=== PATIENT | female | born 1990 | race Caucasian/White ===

== ENCOUNTER 2016-10-24 02:15 | Inpatient (IN) ==
[2016-10-24] MEDS ORDERED: ONDANSETRON 4 MG/2 ML VIAL IV PRN (02:49)
[2016-10-24] MEDS ORDERED: BUTORPHANOL 2 MG/ML VIAL IV PRN (02:49)
[2016-10-24] MEDS ORDERED: CITRIC ACID/SODIUM CITRATE 30 ML UDCUP PO ONE (02:56)
[2016-10-24] MEDS ORDERED: ePHEDrine 50 MG/ML AMP IV PRN (02:56)
[2016-10-24] MEDS ORDERED: FAMOTIDINE 20 MG/2 ML VIAL IV ONE (02:56)
[2016-10-24] MEDS ORDERED: fentaNYL 2 MCG/ROPIV 0.2% EPID 150 ML EPIDURAL SCH (02:57)
[2016-10-24] MEDS ORDERED: LACTATED RINGERS 1,000 ML IV SCH (03:00)
[2016-10-24] MEDS: CLINDAMYCIN INJ 900 MG in PREMIX 1 EACH IV SCH ×2 (03:15→12:04)
[2016-10-24 03:29] LABS: Basophils % 0.1 % (0.0-0.8); Eosinophils % 0.3 % (0.00-10.9); Hematocrit 40.9 VOL% (35.7-47.0); Hemoglobin 13.7 GM/DL (12.0-16.0); Immature Granulocytes % 0.6 %; Immature Granulocytes Absolute 0.05 #; Lymphocytes # 1.6 10*3/uL (1.4-4.0); Lymphocytes % 18.1 % (21.3-54.2); Mean Corpuscular HGB Conc 33.5 GM/DL (32-36); Mean Corpuscular Hemoglobin 31 PG (27-34); Mean Corpuscular Volume 92.5 FL (87-102); Mean Platelet Volume 10.8 FL (9.6-12.0); Monocytes # 0.6 10*3/uL (0.11-0.8); Monocytes % 6.1 % (1.7-12.7); Neutrophils # 6.7 10*3/uL (1.4-7.4); Neutrophils % 74.8 % (38.7-73.9); Platelet Count 128 10*3/uL (130-400); Red Blood Count 4.42 10*6/uL (3.8-5.5); Red Cell Distribution Width 13.7 % (9.3-17.3)
[2016-10-24] MEDS ORDERED: ePHEDrine 50 MG/ML AMP ONE (03:34)
[2016-10-24 03:39] LABS: PT Patient Result 10.1 SECS; Partial Thromboplastin Time 24.9 SECS (0-40)
[2016-10-24 03:59] LABS: Albumin 2.9 G/DL (3.4-5.0); Bilirubin,Total 0.7 MG/DL (0.2-1.0); Calcium 8.8 MG/DL (8.5-10.1); Osmolality,Calculated 276.4 MOS/KG (273-304); Potassium 3.8 MMOL/L (3.5-5.1); Total Protein 6.5 G/DL (6.4-8.3)
[2016-10-24] MEDS ORDERED: miSOPROStol 200 MCG TABLET ONE (06:57)
[2016-10-24] MEDS ORDERED: METHYLERGONOVINE 0.2 MG/1 ML AMP ONE (06:58)
[2016-10-24] MEDS: OXYTOCIN/LR 20 UNIT/1,000 ML BAG IV SCH ×2 (07:32→10:07)
--- NOTE | 2016-10-24 07:54 | Operative Note ---
Date of procedure: 10/24/16 Pre-op diagnosis: IUP at 39 weeks, active labor Post-op diagnosis: same Procedure: findings: male , apgars pending and weight pending at time of delivery The pt was admitted in active labor. She progressed to completely dilated . AROM with clear fluid and the pt delivered SAVD without complications. The placenta delivered spontaneously. There was a 2nd degree laceration which was repaired with 3-0 vicryl in the usual fashion. Hemastasis assured. Anesthesia: epidural Surgeon / Physician: Britt Altamirano Estimated blood loss: other Specimens: none sent Condition: stable Results - Labs CBC & BMP: 10/24/16 Unknown 10/24/16 Unknown Discharge Plan - Discharge Medications No Action Multivitamin () [ Vitamin] 1 tablet PO DAILY - Follow Up or Referral - Forms/Instructions
[2016-10-24] MEDS ORDERED: HYDROCORTISONE 2.5% RECTAL CREAM 30 GM TUBE TOP PRN (11:10)
[2016-10-24] MEDS ORDERED: OXYTOCIN/LR 20 UNIT/1,000 ML BAG IV ONE (11:10)
[2016-10-24] MEDS ORDERED: BISACODYL 10 MG SUPP RECTAL PRN (11:10)
[2016-10-24] MEDS ORDERED: WITCH HAZEL PADS 100/JAR TOP PRN (11:10)
[2016-10-24] MEDS ORDERED: LANOLIN 50% CREAM 0.3 OZ TUBE TOP PRN (11:10)
[2016-10-24] MEDS ORDERED: oxyCODONE/ACETAMINOPHEN 5-325 MG TABLET PO PRN ×2 (11:10)
[2016-10-24] MEDS ORDERED: MEASLES/MUMPS/RUBELLA VACCINE 0.5 ML VIAL SUBCUT ONE (11:10)
[2016-10-24] MEDS ORDERED: BENZOCAINE 20%/MENTHOL 0.5% SPRAY 56 GM CAN TOP PRN (11:10)
[2016-10-24] MEDS ORDERED: DIPH/TET/ACEL PERT BOOSTER VACCINE 0.5 ML VIAL IM ONE (11:10)
[2016-10-24] MEDS ORDERED: RHO(D) IMMUNE GLOBULIN 300 MCG SYRINGE IM ONE (11:10)
[2016-10-24] MEDS ORDERED: ACETAMINOPHEN 325 MG TABLET PO PRN (11:10)
[2016-10-24] MEDS: DOCUSATE SODIUM 100 MG CAPSULE PO SCH ×2 (12:04→19:30)
[2016-10-25] MEDS: IBUPROFEN 800 MG TABLET PO PRN ×3 (00:25→21:36)
[2016-10-25 06:26] LABS: Basophils % 0.1 % (0.0-0.8); Eosinophils # 0.1 10*3/uL (0.0-0.87); Eosinophils % 0.8 % (0.00-10.9); Hematocrit 35.8 VOL% (35.7-47.0); Hemoglobin 11.8 GM/DL (12.0-16.0); Immature Granulocytes % 0.3 %; Immature Granulocytes Absolute 0.03 #; Lymphocytes # 1.8 10*3/uL (1.4-4.0); Lymphocytes % 20.3 % (21.3-54.2); Mean Corpuscular Hemoglobin 31 PG (27-34); Mean Corpuscular Volume 92.5 FL (87-102); Mean Platelet Volume 10.8 FL (9.6-12.0); Monocytes # 0.7 10*3/uL (0.11-0.8); Neutrophils # 6.3 10*3/uL (1.4-7.4); Neutrophils % 70.5 % (38.7-73.9); Platelet Count 118 10*3/uL (130-400); Red Blood Count 3.87 10*6/uL (3.8-5.5); Red Cell Distribution Width 14.1 % (9.3-17.3); White Blood Count 8.9 10*3/uL (4.5-13.71)
--- NOTE | 2016-10-25 08:57 | OB/GYN Progress Note ---
Assessment and Plan (1) Vaginal delivery Status: Acute Current Visit: Yes (2) Term Status: Acute Assessment and plan: PPD #1 . continue roytine PP care. R/B/A/C of a circumcision was reviewed with the pt and she would like her baby to be circumcised Current Visit: No BASKET BRAIDER - PN: Subj Interval history: the pt is feeling well. she has no complaints this morning Exam BASKET BRAIDER - Constitutional Vitals: Vital Signs Temp Pulse Resp BP Pulse Ox 10/25/16 07:24 98.5 F 77 18 115/75 100 10/25/16 03:50 97.8 F 83 18 118/73 96 10/25/16 00:25 98 F 100 H 20 130/74 97 10/24/16 19:30 98 F 81 20 126/80 99 10/24/16 16:00 98.1 F 75 16 121/81 97 10/24/16 11:51 96.8 F L 80 16 126/82 98 10/24/16 11:15 70 16 General appearance: normal weight, no acute distress - Respiratory Respiratory exam: Absent: accessory muscle use - Cardiovascular Cardiovascular exam: Present: regular rate and rhythm - GI/Abdominal GI/Abdominal exam: Absent: guarding, tenderness, rebound - Extremities Exam Extremities exam: Absent: calf tenderness - Neurological Exam Neurological exam: Present: alert, oriented X3 - Psychiatric Psychiatric exam: Present: normal affect, normal mood - Skin Skin exam: Present: normal color Results - Labs CBC & BMP: 10/25/16 06:07 10/24/16 Unknown
[2016-10-25] MEDS: DOCUSATE SODIUM 100 MG CAPSULE PO SCH ×2 (09:34→21:36)
[2016-10-26 07:22] VITALS: BP 126/75
[2016-10-26] MEDS: DOCUSATE SODIUM 100 MG CAPSULE PO SCH (09:00)
--- NOTE | 2016-10-26 10:14 | Discharge Summary ---
Hospital Course - Hospital Course Hospital Course: the pt was admitted in labor and had an uncomplicated SAVD. She was discharged home on PPD#2 in good condition and without complaints. Diagnosis - Discharge Diagnosis (1) Vaginal delivery Status: Acute (2) Term Status: Acute Specialty Discharge - Follow Up or Referrals Follow up with: Britt Altamirano MD [Physician] - (6 weeks) Discharge Plan - Discharge Data Disposition: Disch To Home/Self Care Condition at Discharge: Stable Discharge Diet: advance to your usual diet Activity: resume usual activities as tolerated Hygiene: may shower Weight Bearing at Discharge: full weight bearing Driving: no restrictions Contact your physician if you experience:: fever over 101, Difficulty voiding, Redness or swelling, Nausea/Vomiting, Shortness of breath, Bleeding, pain uncontrolled by pain medications - Discharge Medications No Action Multivitamin () [ Vitamin] 1 tablet PO DAILY - Follow Up or Referral - Forms/Instructions Exam - Constitutional Vitals: Period Temp Pulse Resp BP Sys/Maddox Pulse Ox Last 24 Hr 96.9 F-97.9 F 77-92 18-20 106-126/51-76 98-99 General appearance: normal weight, no acute distress - Respiratory Respiratory exam: Absent: accessory muscle use - Cardiovascular Cardiovascular exam: Present: regular rate and rhythm - GI/Abdominal GI/Abdominal exam: Absent: guarding, tenderness, rebound - Extremities Exam Extremities exam: Absent: calf tenderness - Neurological Exam Neurological exam: Present: alert, oriented X3 - Psychiatric Psychiatric exam: Present: normal affect Discharge Results Procedures and tests throughout hospitalization: Pending Orders 10/24/16 02:49 Urinalysis Routine DS: Provider Date of admission: 10/24/16 02:49 Attending physician on admission: Britt Will- Consults: 10/24/16 02:49 Consult to Anesthesiology [CONS] Routine Consulting Provider: Reason for Anesthesiology: Epidural Consult Comment: Epidural for pain managment 10/24/16 11:10 Consult to Straddle Carrier Operator [CONS] Routine Consult Straddle Carrier Operator: Breast Feeding Discharging clinician: Britt Will- Expected date of discharge: 10/26/16
== END 2016-10-26 13:35 | disposition home or self-care (01) | DRG 775 ==
LOC: N.LDOUT 02:15 → N.LD 02:17 → N.OB 11:40
PROVIDERS: ADMIT Obstetrics & Gynecology; ATTEND Obstetrics & Gynecology